=== PATIENT | female | born 1960 | race Two or more races ===

== ENCOUNTER 2024-11-29 14:37 | Emergency (ER) | payer OTHER ==
[~2024-11-29] VITALS: Ht 167.6 cm; Wt 68.0 kg
[2024-11-29] MEDS ORDERED: LIDOCAINE 1%-EPI 1:100,000 20 ML VIAL ONE (14:47)
[2024-11-29] MEDS: LIDOCAINE 1%-EPI 1:100,000 20 ML VIAL TP ONE (14:59)
[2024-11-29] MEDS ORDERED: CEPH-570 PO (16:29)
[2024-11-29 18:06] VITALS: BP 161/69; TEMP 97.9; O2SAT 100
== END 2024-11-29 17:00 | disposition home or self-care (01) ==
LOC: ER 14:49
DX: S61.412A Laceration without foreign body of left hand, initial encounter (principal); W26.0XXA Contact with knife, initial encounter; Y93.89 Activity, other specified; Y92.090 Kitchen in other non-institutional residence as the place of occurrence of the external cause; Y99.8 Other external cause status
CPT/HCPCS: 12002; 73130; 99283; A6403; J3490